=== PATIENT | male | born 1990 ===

== ENCOUNTER 2018-05-03 14:39 | Emergency (ER) | payer BC ==
--- NOTE | 2018-05-03 15:00 | EDM.PDOC ---
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 Patient currently isn't having any back pain. The patient yesterday was at work when he was doing something that caused him to develop back pain. He thinks he might of been lifting something but he is really not sure. He's had no injuries falls or trauma. No fever no chills. No flank pain. No hematuria. No dysuria or urinary frequency. No history of kidney stone. No fever no chills. No paresthesias of the lower extremities. No change in the functionality of his lower cavities. No loss of bowel or bladder. He is able to ambulate without much difficulty. He has been taking Tylenol with little improvement. He primarily only has pain when he tries to get up but then the pain goes away. Right Middle Back Pain Score (Numeric/FACES): 2 - Related Data Allergies Allergy/AdvReac Type Severity Reaction Status Date / Time No Known Allergies Allergy Verified 05/03/18 14:42 Home Meds: Home Meds . [No Known Home Meds] 05/03/18 [History] Past Medical History - Past Health History Medical/Surgical History: Denies Medical/Surgical History HEENT History: Reports: None Cardiovascular History: Reports: None Respiratory History: Reports: None Gastrointestinal History: Reports: None Genitourinary History: Reports: None Musculoskeletal History: Reports: None Neurological History: Reports: None Psychiatric History: Reports: None Endocrine/Metabolic History: Reports: None Hematologic History: Reports: None Immunologic History: Reports: None Oncologic (Cancer) History: Reports: None Dermatologic History: Reports: None - Infectious Disease History Infectious Disease History: Reports: None - Past Surgical History Head Surgeries/Procedures: Reports: None Social & Family History - Family History Family Medical History: Noncontributory - Tobacco Use Smoking Status *Q: Never Smoker Second Hand Smoke Exposure: No - Caffeine Use Caffeine Use: Reports: Energy Drinks - Recreational Drug Use Recreational Drug Use: No ED ROS GENERAL - Review of Systems Review Of Systems: ROS reveals no pertinent complaints other than HPI. ED EXAM,LOWER BACK PAIN/INJURY - Physical Exam Exam: See Below Exam Limited By: No Limitations General Appearance: Alert, WD/WN, No Apparent Distress Eye Exam: Bilateral Eye: Normal Inspection, PERRL Respiratory/Chest: No Respiratory Distress, Lungs Clear, Normal Breath Sounds, No Accessory Muscle Use Cardiovascular: Normal Peripheral Pulses, Regular Rate, Rhythm GI/Abdominal: Normal Bowel Sounds, Soft Back Exam: Normal Inspection, Full Range of Motion, Other (There is no bruising swelling or ecchymosis bony deformity crepitus subcutaneous emphysema or any other signs of trauma. I'm unable to elicit any tenderness throughout the posterior of the back. No CVA tenderness. His exam is completely negative and unremarkable.). No: CVA Tenderness (L), CVA Tenderness (R), Decreased Range of Motion, Muscle Spasm, Paraspinal Tenderness, Vertebral Tenderness Extremities: Normal Inspection, Normal Range of Motion, Normal Capillary Refill Neurological: Alert, Normal Mood/Affect, Normal Gait DTR - Lower Extremities: 2+: Knee (R), Knee (L), Ankle (R), Ankle (L) Psychiatric: Normal Affect, Normal Mood Skin Exam: Warm, Dry, Intact, Normal Color, No Rash Course - Vital Signs Last Recorded V/S: Last Vital Signs Temp 36.6 C 05/03/18 14:42 Pulse 100 05/03/18 14:42 Resp 18 05/03/18 14:42 BP 133/78 05/03/18 14:42 Pulse Ox 95 05/03/18 14:42 - Re-Assessments/Exams Free Text/Narrative Re-Assessment/Exam: 05/03/18 15:02 Patient is currently asymptomatic and not having any pain. His neurological exam is unremarkable. There was no trauma or injury or fall so do not feel that any radiological evaluation is warranted at this time. We'll discharge him home symptomatic management as well as NSAIDs stretches and Flexeril. He is comfortable with this plan and his questions are answered. Departure - Departure Time of Disposition: 14:55 Disposition: Home, Self-Care 01 Clinical Impression: Low back strain Qualifiers: Encounter type: initial encounter Qualified Code(s): S39.012A - Strain of muscle, fascia and tendon of lower back, initial encounter - Discharge Information Instructions: Back Injury Prevention, [id number], Back Pain, Adult, Easy-to- Read, Mid-Back Strain Rehab-SportsMed, Pain Medicine Instructions, [id number] , Muscle Strain, [id number] Additional Instructions: Ibuprofen as needed for pain. Ice or heat to the affected area which ever works best for you. See discharge instructions for back exercises. Make sure your stay mobile so that you don't get stiff. If continued muscle spasms. Flexeril, 1 tablet 3 times a day as needed for muscle spasms. Caution sedation. #9 Return to the ED if new or worsening symptoms. Follow up with primary care provider in the next 4-6 days if not improving sooner if worse. - Assessment/Plan Assessment:: Mid-lower back strain. Plan: Ibuprofen as needed for pain. Ice or heat to the affected area which ever works best for you. See discharge instructions for back exercises. Make sure your stay mobile so that you don't get stiff. If continued muscle spasms. Flexeril, 1 tablet 3 times a day as needed for muscle spasms. Caution sedation. #9 Return to the ED if new or worsening symptoms. Follow up with primary care provider in the next 4-6 days if not improving sooner if worse.
== END 2018-05-03 15:06 | disposition home or self-care (01) ==
LOC: DL.ED 14:39
DX: S39.012A Strain of muscle, fascia and tendon of lower back, initial encounter (principal); X58.XXXA Exposure to other specified factors, initial encounter
CPT/HCPCS: 99283

== ENCOUNTER 2021-09-28 13:15 | Emergency (ER) | payer BC | END 2021-09-28 13:23 | disposition home or self-care (01) | LOC: DL.ED 13:15 | DX: S42.002A Fracture of unspecified part of left clavicle, initial encounter for closed fracture (principal); W20.8XXA Other cause of strike by thrown, projected or falling object, initial encounter | CPT/HCPCS: 73000-LT; 99282; 99284 ==